=== PATIENT | male | born 1960 | race Caucasian/White ===

== ENCOUNTER 2018-03-20 23:03 | Emergency (ER) | payer OTHER, SELFPAY ==
[2018-03-20 23:05] VITALS: BP 158/100; PULSE 72; RESP 16; TEMP 36.8; O2SAT 96; BMI 36.9
[2018-03-21] MEDS: proCHLORPERazine 10 MG/2 ML Vial IV (00:01)
[2018-03-21] MEDS: DiphenhydrAMINE 50 MG/ML Syringe 25 MG IV (00:01)
[2018-03-21] MEDS: 0.9% Normal Saline 1,000 ML 999 ML IV (00:01)
[2018-03-21] MEDS: Ketorolac 30 MG/ML Syringe IV (00:01)
--- NOTE | 2018-03-21 00:33 | ED.VISSUMM ---
- ER Visit Summary Date of Service: 03/21/18 Chief Complaint: Migraine History of Present Illness: The patient is a 57 M with a 5 day history of migraine headache. Patient has history of chronic migraines and states this is consistent with his prior migraines. Today he got to the point we had nausea and vomiting so felt he should come in. He denies any recent head trauma. He has had no recent URI symptoms. Patient does take Topamax daily and is on naratriptan for migraines. Physical Examination: Blood pressure is 150/100, otherwise vitals normal. Patient sitting upright in a darkened room. He is in no acute distress and appears nontoxic. Head and neck examination is unremarkable. He has no meningismus. Heart is regular rate and rhythm. Lung sounds are clear. Abdomen is soft nontender. Neuro exam is normal with good strength and sensation throughout. Test Results: [] Emergency Department Course and Treatment: Patient is treated with Toradol, Compazine, Benadryl, and IV fluids. On repeat evaluation patient does have more than 50% improvement in his headache. At this time he will be discharged home with his . Treatment Plan: [] Disposition: Discharge Impression: Migraine, improved This note was generated with [employer] dictation software. It may contain incorrect words, spelling, and punctuation that were not noted in review of the chart prior to signing ED Disposition - Plan for ED Patient: Chief Complaint: Headache Referrals: Chico Pruitt MD [Primary Care Provider] -
--- NOTE | 2018-03-21 01:10 | ED.DEP ---
ED Disposition - Plan for ED Patient: Disposition: Home or Assisted Living Chief Complaint: Headache Instructions: ED Headache Migraine Referrals: Chico Pruitt MD [Primary Care Provider] - 1 Week
[2018-03-21 01:13] VITALS: BP 147/98; PULSE 69; RESP 18; O2SAT 97
== END 2018-03-21 01:15 | disposition home or self-care (01) ==
PROVIDERS: Emergency Provider Emergency Medicine; Family Provider Family Medicine; PCP Family Medicine
DX: G43.909 Migraine, unspecified, not intractable, without status migrainosus (principal); I10 Essential (primary) hypertension
CPT/HCPCS: 96361; 96374; 96375; 99283; J7030; A4216

== ENCOUNTER → 2024-05-21 | Outpatient (CLI) | payer OTHER, SELFPAY ==
--- NOTE | 2024-05-21 14:58 | CDU_ITS ---
Reason For Study: Amaurosis fugax Rt. Velocities/BP Lt. Velocities/BP Prox CCA 123.2/22.5 cm/sec. Prox CCA 139.4/22.5 cm/sec. Mid CCA 98.6/24.9 cm/sec. Mid CCA 126.6/26.1 cm/sec. Dist CCA 85.1/20 cm/sec. Dist CCA 106.5/18.8 cm/sec. Prox ICA 79.1/17 cm/sec. Prox ICA 66.3/11.3 cm/sec. Mid ICA 53.2/16.3 cm/sec. Mid ICA 51.3/15.4 cm/sec. Dist ICA 52.2/19.2 cm/sec. Dist ICA 57/17.3 cm/sec. Rt. ICA/CCA = 0.80. Lt. ICA/CCA = 0.52. Prox ECA 119.3/22.5 cm/sec. Prox ECA 154/24.3 cm/sec. Rt. Vert. 60.7/16.3 cm/sec. Lt. Vert. 38.6/12.5 cm/sec. Right Extracranial There is intimal thickening but no significant atherosclerotic plaque noted in the right common carotid artery. There is intimal thickening but no significant atherosclerotic plaque noted in the right internal carotid artery. There is intimal thickening but no significant atherosclerotic plaque noted in the right external carotid artery. Antegrade flow is noted in the right vertebral artery. Left Extracranial There is intimal thickening but no significant atherosclerotic plaque noted in the left common carotid artery. There is intimal thickening but no significant atherosclerotic plaque noted in the left internal carotid artery. There is intimal thickening but no significant atherosclerotic plaque noted in the left external carotid artery. Antegrade flow is noted in the left vertebral artery. Procedure Carotid Duplex 18505. This is a Carotid Duplex examination using B-mode, color flow and specral Doppler. Exam performed in department. VL/Carotid Duplex Ultrasound Interpretation Summary Normal right extracranial internal carotid. Normal left extracranial internal carotid. Patent and antegrade vertebrals bilaterally. Ordering Physician: FRANKIE ELLIOTT Referring Physician: MD Sonal [place] Performed By: Lee Ann Lowe RVT
== END | disposition home or self-care (01) ==
LOC: CVS 14:56
PROVIDERS: PCP Family Medicine
DX: G45.3 Amaurosis fugax (principal)
CPT/HCPCS: 93880